=== PATIENT | female | born 1970 | race Caucasian/White ===

== ENCOUNTER 2016-06-18 13:17 | Emergency (ER) | payer OTHER ==
--- NOTE | 2016-06-18 15:05 | DIAGNOSTIC IMAGING REPORT ---
PROCEDURE: CT THORAX WITHOUT CONTRAST INDICATION: SHARP MIDDLE BACK PAIN TECHNIQUE: Noncontrast axial images with sagittal and coronal reformations. COMPARISON: None. FINDINGS: There is minor parenchymal scarring at the posterior lungs. Lungs otherwise clear. Heart and mediastinum are normal. There are mild degenerative changes of the thoracic spine. There is no evidence of acute process or fracture. Status post cholecystectomy (surgical clips). IMPRESSION: 1. Mild degenerative changes of the thoracic spine. 2. Otherwise negative CT thorax. 3.. Findings discussed with Dr. Teja Yepez. All CT scans at this facility use dose modulation, iterative reconstruction, and/or weight-based dosing when appropriate to reduce radiation dose to as low as reasonably achievable.
--- NOTE | 2016-06-18 15:13 | ED CLINICAL REPORT ---
Clinical Report - Physicians/Mid Levels [facility] [address] [place] [address] 06/18/2016 13:18 Patient: MYKEL MOSHER Arrived- By private vehicle. Historian- patient. HISTORY OF PRESENT ILLNESS Chief Complaint: BACK PAIN. It is described as being severe and in the area of the left side of the mid-thoracic spine, mid thoracic spine and right side of the mid-thoracic spine. The quality is noted to be sharp and aching. Onset was yesterday and it is still present and worsening. It was abrupt in onset and has been constant but is not gone now. No bladder dysfunction, bowel dysfunction, sensory loss or motor loss. Additional history - no urinary retention, fever, hx of IV drug use. Patient denies an injury but injury to the head or chest. No other injury. Similar symptoms previously: Recent medical care: Not recently seen/assessed. REVIEW OF SYSTEMS No fever, chills, difficulty breathing, chest pain or skin rash. All systems otherwise negative, except as recorded above. PAST HISTORY See nurses notes. Medications: MEDICAL MARIJUANA. Allergies: Allergies to steroids. NSAIDs. Tramadol HCL. (dizziness). SOCIAL HISTORY Smoker- current status unknown. History of drug use: marijuana. No alcohol use. Is a local resident. FAMILY HISTORY Negative. ADDITIONAL NOTES The nursing notes have been reviewed. PHYSICAL EXAM Vital Signs: 06/18/2016 13:42 BP: 162/62. HR: 55. RR: 18. O2 saturation: 100%. Temp: 98.3 F. Blood pressure normal. Oxygen saturation normal. Appearance: Alert. No acute distress. HEENT: Normal external inspection. Eyes: Pupils equal, round and reactive to light. ENT: Ears normal. Pharynx normal. Neck: Normal inspection. Neck nontender. Painless ROM. CVS: Normal heart rate and rhythm. Heart sounds normal. Pulses normal. Respiratory: No respiratory distress. Breath sounds normal. Chest nontender. Abdomen: Normal inspection. Soft and nontender. Bowel sounds normal. Back: (lower thoracic tenderness. no crepitus. no overlying skin changes. bilateral paraspinal muscle tenderness. no alivia abnormalities.). Skin: Skin warm and dry. Normal skin color. No rash. Normal skin turgor. Extremities: Extremities exhibit normal ROM. Extremities nontender. Neuro: Oriented X 3. Mood/affect normal. No motor deficit. No sensory deficit. Reflexes normal. LABS, X-RAYS, AND EKG Chest CT: (PROCEDURE: CT THORAX WITHOUT CONTRAST INDICATION: SHARP MIDDLE BACK PAIN TECHNIQUE: Noncontrast axial images with sagittal and coronal reformations. COMPARISON: None. FINDINGS: There is minor parenchymal scarring at the posterior lungs. Lungs otherwise clear. Heart and mediastinum are normal. There are mild degenerative changes of the thoracic spine. There is no evidence of acute process or fracture. Status post cholecystectomy (surgical clips). IMPRESSION: 1. Mild degenerative changes of the thoracic spine. 2. Otherwise negative CT thorax.). Chest CT performed without contrast. The study was independently viewed by me, interpreted by the radiologist and discussed with the radiologist. PROGRESS AND PROCEDURES Course of Care: the patient is a pleasant 45-year-old female with past medical history significant for back pain presenting for evaluation of back pain. The patient reports that she has a history of disc disease. Patient with midline tenderness on examination. This on the imaging rolls with back pain, because patient has midline tenderness, imaging is warranted. Because of the location of the back pain, feel that CT scan would be the best imaging modality. Ribs will be getting in the way of visualizing the spine well. Do not feel plain films would be as of an effective imaging modality. Because of the similar contrast doses with the CT scan, we'll obtain CT scan of the thorax with imaging of the spine as well. Discussed the patient workup here in the emergency department. Patient is agreeable. Pain medication provided. No neurovascular compromise. No evidence of cord compromise at this time. workup shows no acute abnormality. Patient without fever. Do not feel that this is an infectious etiology. No acute abnormalities noted on CT scan of the patient's thoracic spine. Pain has been improved here in the emergency department. Patient appears much More comfortable. Neurological exam continues to be benign. Do not the patient needs to be admitted to the hospital require further emergency department workup. I discussion with patient in regards to her workup, diagnosis, home care, follow-up, and return precautions. At this point in time we'll elect conservative management with medication management and close follow-up. Disposition: Discharged. Condition: good. CLINICAL IMPRESSION 06/18/2016 13:42 BP: 162/62. HR: 55. RR: 18. O2 saturation: 100%. Temp: 98.3 F. Hypertensive. Oxygen saturation normal. Acute nontraumatic thoracic back pain associated with sprain. INSTRUCTIONS Warnings: GENERAL WARNINGS: Return or contact your physician immediately if your condition worsens or changes unexpectedly, if not improving as expected, or if other problems arise. SPECIFICALLY, return if you develop weakness, numbness, tingling, pain or incontinence. Your Current Medications: CONTINUE TAKING THE FOLLOWING MEDICATIONS: MEDICAL MARIJUANA*. Prescription Medications: Cyclobenzaprine 10 mg: take 1 orally every 8 hours for 5 days as needed for muscle spasm or pain. Dispense fifteen (15). No refills. Percocet 5 mg/325 mg: take 1 tablet orally every 6 hours as needed for pain. Dispense twelve (12). No refill. Substitution is permissible. Follow-up: Return to the emergency department as needed. Follow up with your doctor in three days. Reason for referral: recheck today's concerns. Summary of care provided to patient via paper. Screening today revealed the patient's blood pressure to be in the hypertensive range. Blood pressure screening was not performed during this visit because the patient has an active diagnosis of hypertension. The patient should follow up with a primary care provider for blood pressure management. Understanding of the discharge instructions verbalized by patient. (Electronically signed by Teja Yepez Dr. 06/19/2016 18:50)
--- NOTE | 2016-06-18 15:13 | ED NURSING NOTES ---
Clinical Report - Nurses [facility] [place] [address] [place] [address] 06/18/2016 13:18 Patient: MYKEL MOSHER TRIAGE Triage time 13:37. Chief Complaint: BACK PAIN and (strained moving boxes). Alert. --13:41 Leonela Diamond R.N. 13:42 06/18/16. BP: 162/62. HR: 55. RR: 18. O2 saturation: 100%. Temp: 98.3 F. Pain level now 12/28. --13:43 Leonela Diamond R.N. Weight: 83.9 kg stated. Height/Length: 68 inches Per Patient. BMI: 28.1. --13:39 Leonela Diamond R.N. Medications MEDICAL MARIJUANA. --13:39 Leonela Diamond R.N. Allergies Allergies to steroids. NSAIDs. Tramadol HCL. (dizziness) --13:39 Leonela Diamond R.N. History Arrived by private vehicle. Historian: patient. Accompanied by family. Primary physician (none). This started yesterday. ( Also C/O chest pain with the pain in her back). No history of recent trauma. 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 SOCIAL HX: Heavy tobacco smoker (cigarette)- 1 pack per day. History of heavy drug use: marijuana. No alcohol use. --13:41 Leonela Diamond R.N. PROBLEMS: Lumbar Strain. Back Pain. Viral Disease. Ovarian tumor. Pituitary abnormality. Dental Pain. Dental Caries. Immunizations. Lifestyle / Substance Problems. Tetanus Status. Cervical Strain. LNMP - Last Normal Menstrual Period. Hypertension. Substance Abuse. Head Injury. Carpal Tunnel Syndrome. Neck Injury. Asthma. Cervical Radiculopathy. --13:39 Leonela Diamond R.N. ADDITIONAL SURGERIES: Cholecystectomy. Salpingectomy. --13:39 Leonela Diamond R.N. PHYSICAL ASSESSMENT Ambulatory to room. Patient gowned. GENERAL / NEURO / PSYCH: Alert. Oriented X 4. Appears anxious and in distress. RESPIRATORY: Respirations not labored. --13:44 Leonela Diamond R.N. NURSING PROGRESS NOTES Patient identifiers checked. Call light placed in reach. Patient ready for evaluation- PA notified. --13:44 Leonela Diamond R.N. 14:25 06/18/2016 Cyclobenzaprine PO 10 mg given. Allergies verified, confirmed 5 rights and sedative warning given to the patient. --14:25 Leonela Diamond R.N. 14:26 06/18/2016 Percocet (Oxycodone-Acetaminophen) PO 5/325 mg Tablets 1 tab given. Allergies verified, confirmed 5 rights and sedative warning given. --14:26 Leonela Diamond R.N. Locked/Released at 06/18/2016 15:23 by Leonela Diamond R.N.
--- NOTE | 2016-06-18 15:13 | ED NURSING NOTES ---
Clinical Report - Nurses [facility] [place] [address] [place] [address] 06/18/2016 13:18 Patient: MYKEL MOSHER TRIAGE Triage time 13:37. Chief Complaint: BACK PAIN and (strained moving boxes). Alert. --13:41 Leonela Diamond R.N. 13:42 06/18/16. BP: 162/62. HR: 55. RR: 18. O2 saturation: 100%. Temp: 98.3 F. Pain level now 12/28. --13:43 Leonela Diamond R.N. Weight: 83.9 kg stated. Height/Length: 68 inches Per Patient. BMI: 28.1. --13:39 Leonela Diamond R.N. Medications MEDICAL MARIJUANA. --13:39 Leonela Diamond R.N. Allergies Allergies to steroids. NSAIDs. Tramadol HCL. (dizziness) --13:39 Leonela Diamond R.N. History Arrived by private vehicle. Historian: patient. Accompanied by family. Primary physician (none). This started yesterday. ( Also C/O chest pain with the pain in her back). No history of recent trauma. 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 SOCIAL HX: Heavy tobacco smoker (cigarette)- 1 pack per day. History of heavy drug use: marijuana. No alcohol use. --13:41 Leonela Diamond R.N. PROBLEMS: Lumbar Strain. Back Pain. Viral Disease. Ovarian tumor. Pituitary abnormality. Dental Pain. Dental Caries. Immunizations. Lifestyle / Substance Problems. Tetanus Status. Cervical Strain. LNMP - Last Normal Menstrual Period. Hypertension. Substance Abuse. Head Injury. Carpal Tunnel Syndrome. Neck Injury. Asthma. Cervical Radiculopathy. --13:39 Leonela Diamond R.N. ADDITIONAL SURGERIES: Cholecystectomy. Salpingectomy. --13:39 Leonela Diamond R.N. PHYSICAL ASSESSMENT Ambulatory to room. Patient gowned. GENERAL / NEURO / PSYCH: Alert. Oriented X 4. Appears anxious and in distress. RESPIRATORY: Respirations not labored. --13:44 Leonela Diamond R.N. NURSING PROGRESS NOTES Patient identifiers checked. Call light placed in reach. Patient ready for evaluation- PA notified. --13:44 Leonela Diamond R.N. 14:25 06/18/2016 Cyclobenzaprine PO 10 mg given. Allergies verified, confirmed 5 rights and sedative warning given to the patient. --14:25 Leonela Diamond R.N. 14:26 06/18/2016 Percocet (Oxycodone-Acetaminophen) PO 5/325 mg Tablets 1 tab given. Allergies verified, confirmed 5 rights and sedative warning given. --14:26 Leonela Diamond R.N. Locked/Released at 06/18/2016 15:23 by Leonela Diamond R.N.
--- NOTE | 2016-06-18 15:13 | ED ORDER SUMMARY ---
..... Patient: MYKEL MOSHER OrderSheet VisitID: [id number] [place] [address] 45y, F Registration Date/Time: 06/18/2016 ORDER SHEET Weight: 83.9 kg (stated) Allergies: Allergies to steroids, NSAIDs, Tramadol HCL GENERAL ORDERS: CT Thorax wo Cont Urgent (14:04 06/18/2016 Catina Garrison) (Ack 14:11 RKaruga) (14:14 DMaziarka R.N.) MEDICATION ORDERS: Cyclobenzaprine PO 10 mg (NOW) (14:07 06/18/2016 Catina Garrison) (Ack 14:18 DMaziarka R.N.) (14:25 DMaziarka R.N.) Percocet PO 5/325 mg (HIGH ALERT MEDICATION, NOW) (14:08 06/18/2016 Catina Garrison) (Ack 14:18 DMaziarka R.N.) (14:26 DMaziarka R.N.) IV FLUIDS: ORDER SHEET NOTES: [Electronically signed by Leonela Diamond R.N. (15:23 06/18/2016)] [Electronically signed by Teja Yepez Dr. (18:50 06/19/2016)] [Electronically locked/signed by Leonela Diamond R.N. (15:23 06/18/2016)]
--- NOTE | 2016-06-18 15:13 | ED ORDER SUMMARY ---
..... Patient: MYKEL MOSHER OrderSheet [facility] VisitID: [id number] [place] [address] 45y, F Registration Date/Time: 06/18/2016 ORDER SHEET Weight: 83.9 kg (stated) Allergies: Allergies to steroids, NSAIDs, Tramadol HCL GENERAL ORDERS: CT Thorax wo Cont Urgent (14:04 06/18/2016 Catina Garrison) (Ack 14:11 RKaruga) (14:14 DMaziarka R.N.) MEDICATION ORDERS: Cyclobenzaprine PO 10 mg (NOW) (14:07 06/18/2016 Catina Garrison) (Ack 14:18 DMaziarka R.N.) (14:25 DMaziarka R.N.) Percocet PO 5/325 mg (HIGH ALERT MEDICATION, NOW) (14:08 06/18/2016 Catina Garrison) (Ack 14:18 DMaziarka R.N.) (14:26 DMaziarka R.N.) IV FLUIDS: ORDER SHEET NOTES: [Electronically signed by Leonela Diamond R.N. (15:23 06/18/2016)] [Electronically signed by Teja Yepez Dr. (18:50 06/19/2016)] [Electronically locked/signed by Leonela Diamond R.N. (15:23 06/18/2016)]
--- NOTE | 2016-06-19 18:50 | ED MAR SUMMARY ---
..... Medication Administration Record [facility] [address] [place] [address] Patient: MYKEL MOSHER Visit ID: [id number] 45y, F Weight: 83.9 kg Height/Length: 68 in BMI: 28.1 ALLERGIES: Allergies to steroids, NSAIDs, Tramadol HCL Given 14:06/18/2016 Leonela Diamond RRosibelN. Medication Administered: CYCLOBENZAPRINE [PO], Dose: 10 mg PO. Medication Ordered: Cyclobenzaprine PO 10 mg (NOW). Given 14:06/18/2016 Leonela Diamond R.N. Medication Administered: PERCOCET [PO] (OXYCODONE-ACETAMINOPHEN), Dose: 1 tab 5/325 mg Tablets PO. Medication Ordered: Percocet PO 5/325 mg (HIGH ALERT MEDICATION, NOW).
--- NOTE | 2016-06-19 18:50 | ED MAR SUMMARY ---
..... Medication Administration Record [facility] [address] [place] [address] Patient: MYKEL MOSHER Visit ID: [id number] 45y, F Weight: 83.9 kg Height/Length: 68 in BMI: 28.1 ALLERGIES: Allergies to steroids, NSAIDs, Tramadol HCL Given 14:06/18/2016 Leonela Diamond RRosibelN. Medication Administered: CYCLOBENZAPRINE [PO], Dose: 10 mg PO. Medication Ordered: Cyclobenzaprine PO 10 mg (NOW). Given 14:06/18/2016 Leonela Diamond R.N. Medication Administered: PERCOCET [PO] (OXYCODONE-ACETAMINOPHEN), Dose: 1 tab 5/325 mg Tablets PO. Medication Ordered: Percocet PO 5/325 mg (HIGH ALERT MEDICATION, NOW).
--- NOTE | 2016-06-19 18:50 | ED DISCHARGE INSTRUCTIONS ---
Patient: MYKEL MOSHER General Instructions [facility] VisitID: [id number] [place] [address] 45y, F Registration Date/Time: 06/18/2016 06/18/2016 13:42 BP: 162/62. HR: 55. RR: 18. O2 saturation: 100%. Temp: 98.3 F. Hypertensive. Oxygen saturation normal. Acute nontraumatic thoracic back pain associated with sprain. INSTRUCTIONS Warnings: GENERAL WARNINGS: Return or contact your physician immediately if your condition worsens or changes unexpectedly, if not improving as expected, or if other problems arise. SPECIFICALLY, return if you develop weakness, numbness, tingling, pain or incontinence. Your Current Medications: CONTINUE TAKING THE FOLLOWING MEDICATIONS: MEDICAL MARIJUANA*. Prescription Medications: Cyclobenzaprine 10 mg: take 1 orally every 8 hours for 5 days as needed for muscle spasm or pain. Dispense fifteen (15). No refills. Percocet 5 mg/325 mg: take 1 tablet orally every 6 hours as needed for pain. Dispense twelve (12). No refill. Substitution is permissible. Follow-up: Return to the emergency department as needed. Follow up with your doctor in three days. Reason for referral: recheck today's concerns. Summary of care provided to patient via paper. Screening today revealed the patient's blood pressure to be in the hypertensive range. Blood pressure screening was not performed during this visit because the patient has an active diagnosis of hypertension. The patient should follow up with a primary care provider for blood pressure management. Understanding of the discharge instructions verbalized by patient. ADDITIONAL INFORMATION Back Pain [Acute Or Chronic] Back pain is usually caused by an injury to the muscles or ligaments of the spine. Sometimes the disks that separate each bone in the spine may bulge and cause pain by pressing on a nearby nerve. Back pain may also appear after a sudden twisting/bending force (such as in a car accident), after a simple awkward movement, or lifting something heavy with poor body positioning. In either case, muscle spasm is often present and adds to the pain. Acute back pain usually gets better in one to two weeks. Back pain related to disk disease, arthritis in the spinal joints or spinal stenosis (narrowing of the spinal canal) can become chronic and last for months or years. Unless you had a physical injury (for example, a car accident or fall) X-rays are usually not ordered for the initial evaluation of back pain. If pain continues and does not respond to medical treatment, x-rays and other tests may be performed at a later time. Home Care: You may need to stay in bed the first few days. But, as soon as possible, begin sitting or walking to avoid problems with prolonged bed rest (muscle weakness, worsening back stiffness and pain, blood clots in the legs). When in bed, try to find a position of comfort. A firm mattress is best. Try lying flat on your back with pillows under your knees. You can also try lying on your side with your knees bent up towards your chest and a pillow between your knees. Avoid prolonged sitting. This puts more stress on the lower back than standing or walking. During the first two days after injury, apply an ICE PACK to the painful area for 20 minutes every 2-4 hours. This will reduce swelling and pain. HEAT (hot shower, hot bath or heating pad) works well for muscle spasm. You can start with ice, then switch to heat after two days. Some patients feel best alternating ice and heat treatments. Use the one method that feels the best to you. You may use acetaminophen (Tylenol) or ibuprofen (Motrin, Advil) to control pain, unless another pain medicine was prescribed. [NOTE: If you have chronic liver or kidney disease or ever had a stomach ulcer or GI bleeding, talk with your doctor before using these medicines.] Be aware of safe lifting methods and do not lift anything over 15 pounds until all the pain is gone. Follow Up with your doctor or this facility if your symptoms do not start to improve after one week. Physical therapy may be needed. [NOTE: If X-rays were taken, they will be reviewed by a radiologist. You will be notified of any new findings that may affect your care.] Get Prompt Medical Attention if any of the following occur: Pain becomes worse or spreads to your legs Weakness or numbness in one or both legs Loss of bowel or bladder control Numbness in the groin or genital area Degenerative Disk Disease Spinal disks are gel-filled cushions between the bones of the spine (vertebrae). The disks act like shock absorbers. Over time, the disks may break down. This disorder is called degenerative disk disease (DDD). DDD can affect the neck or back. It is one of the most common causes of low back pain. It is the leading cause of disability in people under age 45 in the [place]. The pain usually remains localized to the lower back or neck. Muscle spasm is often present and adds to the pain. Disk degeneration is a natural part of aging, although it does not cause pain in most persons. It may also occur as a result of repeated minor injuries due to daily activities, sports, or accidents. It may lead to osteoarthritis of the spine. Back pain related to disk disease may come and go or become chronic and last for months or years. If the disk bulges or ruptures (also called slipped disk or herniated disk), it can put pressure on a nearby spinal nerve and cause neck or back pain that spreads down one arm or leg. X-rays or MRI (magnetic resonance imaging) scan may aid in the diagnosis. For acute pain, treatment consists of anti-inflammatory drugs, muscle relaxants, rest, ice, or heat. Narcotic pain medicines may be needed for short-term treatment of sudden worsening of pain. Due to their addictive potential, narcotics are not advised for long-term pain management. Other types of medicines are preferred. Surgery is usually not used to treat this condition unless there is a complication (such as nerve root compression). Home Care: FOR NECK PAIN: Use a comfortable pillow that supports the head and keeps the spine in a neutral position. The head should not be tilted forward or backward. FOR BACK PAIN: Avoid prolonged sitting. This puts more stress on the lower back than standing or walking. Establishing a regular exercise program to strengthen the supporting muscles of the spine will make it easier to live with DDD. During the first2 days after a flare-up of your pain, apply anice pack to the painful area for 20 minutes every 2-4 hours. This will reduce swelling and pain.Heat (hot shower, hot bath, or heating pad) works well for muscle spasm. You can start with ice, then switch to heat after2 days. Some patients feel best alternating ice and heat treatments. Use the method that feelsbest to you. You may use acetaminophen (Tylenol) or ibuprofen (Motrin, Advil) to control pain, unless another pain medicine was prescribed. [NOTE: If you have chronic liver or kidney disease or ever had a stomach ulcer or GI bleeding, talk with your doctor before using these medicines.] Follow Up with your physician, or as directed by our staff. [NOTE: If x-rays, a CT scan or an MRI scan were taken, they will be reviewed by a radiologist. You will be notified of any new findings that may affect your care.] Return Promptly or contact your doctor if any of the following occur: Increasing back pain New weakness, numbness, or pain in one or both arms or legs Foot drop (foot drags when you walk) Loss of bowel or bladder control Numbness or tingling in the buttock or groin area Unexplained fever over 100.4F (38.0C) Cyclobenzaprine Hydrochloride Oral tablet What is this medicine? CYCLOBENZAPRINE (ruthannbeverly jair RAFAEL carson preen) is a muscle relaxer. It is used to treat muscle pain, spasms, and stiffness. How should I use this medicine? Take this medicine by mouth with a glass of water. Follow the directions on the prescription label. If this medicine upsets your stomach, take it with food or milk. Take your medicine at regular intervals. Do not take it more often than directed. Talk to your wilderness guide regarding the use of this medicine in children. Special care may be needed. What side effects may I notice from receiving this medicine? Side effects that you should report to your doctor or health pediatric care coordinator as soon as possible: allergic reactions like skin rash, itching or hives, swelling of the face, lips, or tongue chest pain fast heartbeat hallucinations seizures vomiting Side effects that usually do not require medical attention (report to your doctor or health pediatric care coordinator if they continue or are bothersome): headache What may interact with this medicine? Do not take this medicine with any of the following medications: cisapride droperidol flecainide grepafloxacin halofantrine levomethadyl MAOIs like Carbex, Eldepryl, Marplan, Nardil, and Parnate nilotinib pimozide probucol sertindole This medicine may also interact with the following medications: abarelix alcohol contrast dyes dolasetron guanethidine medicines for cancer medicines for depression, anxiety, or psychotic disturbances medicines to treat an irregular heartbeat medicines used for sleep or numbness during surgery or procedure methadone octreotide ondansetron palonosetron phenothiazines like chlorpromazine, mesoridazine, prochlorperazine, thioridazine some medicines for infection like alfuzosin, chloroquine, clarithromycin, levofloxacin, mefloquine, pentamidine, troleandomycin tramadol vardenafil What if I miss a dose? If you miss a dose, take it as soon as you can. If it is almost time for your next dose, take only that dose. Do not take double or extra doses. Where should I keep my medicine? Keep out of the reach of children. Store at room temperature between 15 and 30 degrees C (59 and 86 degrees F). Keep container tightly closed. Throw away any unused medicine after the expiration date. What should I tell my health care provider before I take this medicine? They need to know if you have any of these conditions: heart disease, irregular heartbeat, or previous heart attack liver disease thyroid problem an unusual or allergic reaction to cyclobenzaprine, tricyclic antidepressants, lactose, other medicines, foods, dyes, or preservatives or trying to get breast-feeding What should I watch for while using this medicine? Check with your doctor or health pediatric care coordinator if your condition does not improve within 1 to 3 weeks. You may get drowsy or dizzy when you first start taking the medicine or change doses. Do not drive, use machinery, or do anything that may be dangerous until you know how the medicine affects you. Stand or sit up slowly. Your mouth may get dry. Drinking water, chewing sugarless gum, or sucking on hard candy may help. Oxycodone Hydrochloride, Acetaminophen Oral tablet What is this medicine? ACETAMINOPHEN; OXYCODONE (a set a ALEXIS meaghan fen; ox i KOE done) is a pain reliever. It is used to treat mild to moderate pain. How should I use this medicine? Take this medicine by mouth with a full glass of water. Follow the directions on the prescription label. Take your medicine at regular intervals. Do not take your medicine more often than directed. Talk to your wilderness guide regarding the use of this medicine in children. Special care may be needed. Patients over 65 years old may have a stronger reaction and need a smaller dose. What side effects may I notice from receiving this medicine? Side effects that you should report to your doctor or health pediatric care coordinator as soon as possible: allergic reactions like skin rash, itching or hives, swelling of the face, lips, or tongue breathing difficulties, wheezing confusion light headedness or fainting spells severe stomach pain yellowing of the skin or the whites of the eyes Side effects that usually do not require medical attention (report to your doctor or health pediatric care coordinator if they continue or are bothersome): dizziness drowsiness nausea vomiting What may interact with this medicine? alcohol antihistamines barbiturates like amobarbital, butalbital, butabarbital, methohexital, pentobarbital, phenobarbital, thiopental, and secobarbital benztropine drugs for bladder problems like solifenacin, trospium, oxybutynin, tolterodine, hyoscyamine, and methscopolamine drugs for breathing problems like ipratropium and tiotropium drugs for certain stomach or intestine problems like propantheline, homatropine methylbromide, glycopyrrolate, atropine, belladonna, and dicyclomine general anesthetics like etomidate, ketamine, nitrous oxide, propofol, desflurane, enflurane, halothane, isoflurane, and sevoflurane medicines for depression, anxiety, or psychotic disturbances medicines for sleep muscle relaxants naltrexone narcotic medicines (opiates) for pain phenothiazines like perphenazine, thioridazine, chlorpromazine, mesoridazine, fluphenazine, prochlorperazine, promazine, and trifluoperazine scopolamine tramadol trihexyphenidyl What if I miss a dose? If you miss a dose, take it as soon as you can. If it is almost time for your next dose, take only that dose. Do not take double or extra doses. Where should I keep my medicine? Keep out of the reach of children. This medicine can be abused. Keep your medicine in a safe place to protect it from theft. Do not share this medicine with anyone. Selling or giving away this medicine is dangerous and against the law. Store at room temperature between 20 and 25 degrees C (68 and 77 degrees F). Keep container tightly closed. Protect from light. This medicine may cause accidental overdose and if it is taken by other adults, children, or pets. Flush any unused medicine down the toilet to reduce the chance of harm. Do not use the medicine after the expiration date. What should I tell my health care provider before I take this medicine? They need to know if you have any of these conditions: brain tumor Crohn's disease, inflammatory bowel disease, or ulcerative colitis drink more than 3 alcohol containing drinks per day drug abuse or addiction head injury heart or circulation problems kidney disease or problems going to the bathroom liver disease lung disease, asthma, or breathing problems an unusual or allergic reaction to acetaminophen, oxycodone, other opioid analgesics, other medicines, foods, dyes, or preservatives or trying to get breast-feeding What should I watch for while using this medicine? Tell your doctor or health pediatric care coordinator if your pain does not go away, if it gets worse, or if you have new or a different type of pain. You may develop tolerance to the medicine. Tolerance means that you will need a higher dose of the medication for pain relief. Tolerance is normal and is expected if you take this medicine for a long time. Do not suddenly stop taking your medicine because you may develop a severe reaction. Your body becomes used to the medicine. This does NOT mean you are addicted. Addiction is a behavior related to getting and using a drug for a non-medical reason. If you have pain, you have a medical reason to take pain medicine. Your doctor will tell you how much medicine to take. If your doctor wants you to stop the medicine, the dose will be slowly lowered over time to avoid any side effects. You may get drowsy or dizzy. Do not drive, use machinery, or do anything that needs mental alertness until you know how this medicine affects you. Do not stand or sit up quickly, especially if you are an older patient. This reduces the risk of dizzy or fainting spells. Alcohol may interfere with the effect of this medicine. Avoid alcoholic drinks. There are different types of narcotic medicines (opiates) for pain. If you take more than one type at the same time, you may have more side effects. Give your health care provider a list of all medicines you use. Your doctor will tell you how much medicine to take. Do not take more medicine than directed. Call emergency for help if you have problems breathing. The medicine will cause constipation. Try to have a bowel movement at least every 2 to 3 days. If you do not have a bowel movement for 3 days, call your doctor or health pediatric care coordinator. Do not take Tylenol (acetaminophen) or medicines that have acetaminophen with this medicine. Too much acetaminophen can be very dangerous. Many nonprescription medicines contain acetaminophen. Always read the labels carefully to avoid taking more acetaminophen. You have been given the following additional information: Back Pain (Acute Or Chronic) Degenerative Disk Disease Cyclobenzaprine Hydrochloride Oral tablet Oxycodone Hydrochloride, Acetaminophen Oral tablet (Electronically signed by Teja Yepez Dr. 06/19/2016 18:50)
--- NOTE | 2016-06-19 18:50 | ED MED RECONCILIATION SUMMARY ---
Patient: MYKEL MOSHER Medication Reconciliation Report [facility] VisitID: [id number] [place] [address] 45y, F Registration Date/Time: 06/18/2016 Weight: 83.9 kg Height/Length: 68 in. BMI: 28.1 ALLERGIES: Allergies to steroids, NSAIDs, Tramadol HCL The patient's Home Medications are listed below: CONTINUE TAKING THE FOLLOWING MEDICATIONS: MEDICAL MARIJUANA The source(s) of the original Home Medication information: Not obtained. The following Medications were given to the patient in the Emergency Department: Cyclobenzaprine [PO] PO 10 mg, administered: 06/18/2016 2:25:00 PM Percocet [PO] PO 1 tab, administered: 06/18/2016 2:26:00 PM The following Medications were prescribed to the patient: Cyclobenzaprine 10 mg: take 1 orally every 8 hours for 5 days as needed for muscle spasm or pain. Dispense fifteen (15). No refills. -- Teja Yepez Dr. Percocet 5 mg/325 mg: take 1 tablet orally every 6 hours as needed for pain. Dispense twelve (12). No refill. Substitution is permissible. -- Teja Yepez Dr.
--- NOTE | 2016-06-19 18:50 | ED MED RECONCILIATION SUMMARY ---
Patient: MYKEL MOSHER Medication Reconciliation Report [facility] VisitID: [id number] [place] [address] 45y, F Registration Date/Time: 06/18/2016 Weight: 83.9 kg Height/Length: 68 in. BMI: 28.1 ALLERGIES: Allergies to steroids, NSAIDs, Tramadol HCL The patient's Home Medications are listed below: CONTINUE TAKING THE FOLLOWING MEDICATIONS: MEDICAL MARIJUANA The source(s) of the original Home Medication information: Not obtained. The following Medications were given to the patient in the Emergency Department: Cyclobenzaprine [PO] PO 10 mg, administered: 06/18/2016 2:25:00 PM Percocet [PO] PO 1 tab, administered: 06/18/2016 2:26:00 PM The following Medications were prescribed to the patient: Cyclobenzaprine 10 mg: take 1 orally every 8 hours for 5 days as needed for muscle spasm or pain. Dispense fifteen (15). No refills. -- Teja Yepez Dr. Percocet 5 mg/325 mg: take 1 tablet orally every 6 hours as needed for pain. Dispense twelve (12). No refill. Substitution is permissible. -- Teja Yepez Dr.
== END 2016-06-18 15:21 | disposition home or self-care (01) ==
LOC: ED SRH 13:17
DX: S23.3XXA Sprain of ligaments of thoracic spine, initial encounter (principal); X50.0XXA Overexertion from strenuous movement or load, initial encounter; Y93.89 Activity, other specified; Y92.9 Unspecified place or not applicable; Y99.9 Unspecified external cause status; Z88.5 Allergy status to narcotic agent; Z88.6 Allergy status to analgesic agent

== ENCOUNTER → 2016-10-17 | Outpatient (CLI) | payer OTHER ==
--- NOTE | 2016-10-17 13:10 | DIAGNOSTIC IMAGING REPORT ---
PROCEDURE: XR RIBS UNILATERAL - RIGHT INDICATION: RIB PAIN TECHNIQUE: Two views of the right ribs with single PA view chest. COMPARISON: None. FINDINGS: RIGHT RIBS: Incomplete nondisplaced fracture of the right 11th rib. CHEST: Normal cardiomediastinal contour. Clear lungs without pleural effusion, pneumothorax, or contusion. The other visible osseous structures are intact. IMPRESSION: 1. Incomplete nondisplaced fracture right 11th rib. 2. Normal chest without radiographic evidence of trauma.
== END ==
LOC: XR SRH 12:31
DX: S22.31XA Fracture of one rib, right side, initial encounter for closed fracture (principal)

== ENCOUNTER 2016-11-27 09:07 | Outpatient (CLI) | payer OTHER ==
--- NOTE | 2016-11-27 09:29 | DIAGNOSTIC IMAGING REPORT ---
PROCEDURE: XR CHEST 2 VIEW INDICATION: CHEST PX RIGHT 11TH RIB FRACTURE 7 WEEKS POST INJURY TECHNIQUE: PA and lateral views. COMPARISON: Chest and ribs 10/17/2016 FINDINGS: Lungs are clear. Heart and mediastinum are normal. Thorax is normal. IMPRESSION: 1. Negative chest.
== END 2016-11-27 23:00 ==
LOC: IMAGING SR 09:07
DX: R07.89 Other chest pain (principal)